=== PATIENT | male | born 1975 | race Caucasian/White ===

== ENCOUNTER → 2022-05-27 14:21 | Outpatient (BNVA) | payer OTHER, SELFPAY | PROVIDERS: Visit Provider Physician Assistant | DX: Z13.89 Encounter for screening for other disorder (principal) ==

== ENCOUNTER → 2022-06-03 08:07 | Outpatient (BNVA) | payer OTHER, SELFPAY | PROVIDERS: Visit Provider Surgery | DX: E66.9 Obesity, unspecified (principal) ==

== ENCOUNTER → 2022-06-10 08:17 | Outpatient (REF) | payer OTHER, SELFPAY ==
--- NOTE | ~2022-06-10 | XR_ITS ---
EXAMINATION: XR CHEST CLINICAL INFORMATION: Obesity. COMPARISON: None TECHNIQUE: 2 views of the chest were obtained. FINDINGS: No significant abnormality is noted involving the heart, lungs, mediastinum, bony thorax or soft tissues. XR/XR chest 2V IMPRESSION: No acute cardiopulmonary process.
--- NOTE | 2022-06-10 08:25 | ECG_ITS ---
Test Reason : E66.9 Obesity Blood Pressure : / mmHG Vent. Rate : 082 BPM Atrial Rate : 082 BPM P-R Int : 168 ms QRS Dur : 082 ms QT Int : 406 ms P-R-T Axes : 050 016 012 degrees QTc Int : 474 ms Normal sinus rhythm Normal ECG No previous ECGs available Referred By: Ed Hauser Electronically Signed By:FLORI VANN
[2022-06-10 08:40] LABS: MANUAL DIFF FLAG NO
[2022-06-10 09:17] LABS: Estimated Average Glucose 128 mg/dL; Hemoglobin A1c % 6.1 %
[2022-06-10 09:19] LABS: Basophils Percent Auto 0.3 % (0-2); Eosinophils Absolute Auto 0.2 X10*3/uL (0.0-0.4); Eosinophils Percent Auto 2.9 % (0-4); Hematocrit 38.1 % (42.0-52.0); Hemoglobin 13.4 g/dl (14.0-18.0); Imm Gran Abs Auto 0.03 X10*3/uL (0.00-0.03); Imm Gran Pct Auto 0.4 % (0.0-0.4); Lymphocytes Absolute Auto 1.6 X10*3/uL (1.2-4.9); Lymphocytes Percent Auto 21.5 % (20-40); Mean Corpuscular HGB Conc 35.2 g/dl (31.0-36.0); Mean Corpuscular Hemoglobin 30.1 pg (27.0-33.0); Mean Corpuscular Volume 85.6 fL (80.0-98.0); Mean Platelet Volume 9.6 fL (9.4-12.4); Monocytes Absolute Auto 0.4 X10*3/uL (0.1-1.2); Monocytes Percent Auto 4.9 % (2-11); Neutrophils Absolute Auto 5.3 x10*3/uL (2.0-8.3); Platelet Count 305 X10*3/uL (160-400); Red Blood Count 4.45 X10*6/uL (4.60-5.80); Red Cell Distribution Width 12.7 % (11.0-16.0); White Blood Count 7.6 X10*3/uL (4.8-10.8)
[2022-06-10 09:37] LABS: Alanine Aminotransferase 24 U/L (0-40); Albumin Level 4.4 g/dL (3.5-5.0); Alkaline Phosphatase 79 U/L (39-117); Anion Gap 12 (12-20); Aspartate Amino Transferase 23 U/L (5-37); Bilirubin Total 3.1 mg/dL (0.0-1.0); Blood Urea Nitrogen 18 mg/dL (9-16); C Reactive Protein 0.27 mg/dL (< or = 0.50); Calcium 9.4 mg/dL (8.4-10.2); Carbon Dioxide 30 mmol/L (22-29); Chloride 102 mmol/L (96-108); Cholesterol 73 mg/dL; Estimated Glomerular Filt Rate > 60; Glucose Random 143 mg/dL (60-115); HDL Cholesterol 32 mg/dL; Iron 131 mcg/dL (45-160); LDL Cholesterol Calculated 25 mg/dl; Percent Iron Saturation 39 % (15-50); Potassium 3.6 mmol/L (3.3-5.1); Sodium 140 mmol/L (135-145); Total Iron Binding Capacity 334 mcg/dL (228-428); Triglycerides 80 mg/dL; Unsaturated Iron Binding 203 ug/dL
[2022-06-10 09:49] LABS: Ferritin 103 ng/mL (20-250); Insulin 27 uU/mL (2-29); TSH reflex Free T4 0.98 uIU/mL (0.32-4.0); Vitamin D 25-OH Total 46.6 ng/mL (>30)
[2022-06-10 10:04] LABS: Folate 19.2 ng/mL (> or = 4.0); Vitamin B12 683 pg/mL (200-900)
[2022-06-11 14:13] LABS: Calcium (PTHI) 9.4 mg/dL (8.6-10.3); PTHI 34 pg/mL (16-77)
[2022-06-14 10:19] LABS: Vitamin A 58 mcg/dL (38-98); Zinc 92 mcg/dL (60-130)
[2022-06-15 08:13] LABS: Vitamin B1 21 nmol/L (8-30)
== END ==
LOC: HO.CARD 08:17
PROVIDERS: Visit Provider Surgery
DX: I11.0 Hypertensive heart disease with heart failure (principal); I50.9 Heart failure, unspecified; E66.9 Obesity, unspecified; Z68.38 Body mass index [BMI] 38.0-38.9, adult; E11.9 Type 2 diabetes mellitus without complications; E78.5 Hyperlipidemia, unspecified; G47.30 Sleep apnea, unspecified; J45.909 Unspecified asthma, uncomplicated; Z79.4 Long term (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 of insulin
CPT/HCPCS: 36415; 71046; 80053; 80061; 82306; 82607; 82728; 82746; 83036; 83525; 83540; 83970; 84425; 84443; 84590; 84630; 85025; 86140; 93005

== ENCOUNTER → 2022-06-23 07:56 | Outpatient (BNVA) | payer OTHER, SELFPAY | PROVIDERS: PCP Internal Medicine; Visit Provider Physician Assistant Surgical | DX: Z13.89 Encounter for screening for other disorder (principal) ==

== ENCOUNTER 2022-06-23 08:00 | Outpatient (REF) | payer OTHER, SELFPAY ==
[2022-06-28 14:07] LABS: H Pylori Breath Test Negative (Negative)
== END 2022-06-23 08:01 | disposition home or self-care (01) ==
LOC: HO.LNP 08:00
PROVIDERS: Visit Provider Surgery
DX: E11.9 Type 2 diabetes mellitus without complications (principal); E66.9 Obesity, unspecified; Z68.38 Body mass index [BMI] 38.0-38.9, adult; G47.30 Sleep apnea, unspecified; I10 Essential (primary) hypertension; E78.5 Hyperlipidemia, unspecified; I50.9 Heart failure, unspecified; J45.909 Unspecified asthma, uncomplicated; Z79.4 Long term (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 of insulin; Z99.89 Dependence on other enabling machines and devices
CPT/HCPCS: 83013

== ENCOUNTER → 2022-06-24 08:19 | Outpatient (BNVA) | payer OTHER, SELFPAY | PROVIDERS: Visit Provider Surgery | DX: E66.9 Obesity, unspecified (principal) ==

== ENCOUNTER → 2022-06-30 08:44 | Outpatient (BNVA) | payer OTHER, SELFPAY | PROVIDERS: Visit Provider Dietitian, Registered | DX: E66.9 Obesity, unspecified (principal); Z68.36 Body mass index [BMI] 36.0-36.9, adult; E11.9 Type 2 diabetes mellitus without complications; Z79.4 Long term (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 of insulin | CPT/HCPCS: 97802 ==

== ENCOUNTER → 2022-07-02 13:11 | Outpatient (BNVA) | payer OTHER, SELFPAY | PROVIDERS: Visit Provider Counselor Mental Health | DX: F43.20 Adjustment disorder, unspecified (principal); E66.9 Obesity, unspecified | CPT/HCPCS: 90791 ==

== ENCOUNTER 2022-07-06 08:25 | Outpatient (REF) | payer OTHER, SELFPAY ==
--- NOTE | ~2022-07-06 | FL_ITS ---
EXAMINATION: XR FLUOROSCOPY UPPER GI WITH AIR CLINICAL INFORMATION: Obesity. Preop COMPARISON: None TECHNIQUE: Routine upper GI air-contrast study was performed in upright and lying position. FINDINGS: Following oral administration of thick barium and effervescent granules there is normal propagation of bolus from the oral cavity through the pharynx, esophagus into stomach without any evidence of obstruction, narrowing or stricture. On placing patient supine and prone, there is mild gastroesophageal reflux without hiatal hernia. The course, caliber and peristalsis of the stomach, duodenal bulb and the sweep is normal. The mucosal pattern of the stomach and the duodenum is normal. FLUOROSCOPY TIME: 1.4 minutes DOSE AREA PRODUCT: 49.791 uGy-m2 (microgray-meter squared) FL/FL upper GI w air IMPRESSION: Unremarkable upper GI double contrast examination.
== END 2022-07-06 08:26 | disposition home or self-care (01) ==
LOC: HO.XRAY 08:25
PROVIDERS: Visit Provider Surgery
DX: Z01.818 Encounter for other preprocedural examination (principal); E66.9 Obesity, unspecified; Z68.38 Body mass index [BMI] 38.0-38.9, adult; E11.9 Type 2 diabetes mellitus without complications; Z79.4 Long term (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 of insulin
CPT/HCPCS: 74246

== ENCOUNTER 2022-07-17 09:07 | Outpatient (REF) | payer OTHER, SELFPAY ==
--- NOTE | ~2022-07-17 | US_ITS ---
EXAMINATION: US COMPLETE ABDOMEN WITH LIVER ELASTOGRAPHY CLINICAL INFORMATION: Obesity. COMPARISON: None. TECHNIQUE: Real-time imaging of the abdominal viscera. Noninvasive ultrasound liver fibrosis assessment is performed using Shoshana ElastPQ point quantification shear wave elastography (2D-SWE) with a C5-2 MHz transducer. Multiple elastography samples are obtained. FINDINGS: PANCREAS: Limited. The visualized pancreatic head and body are normal in appearance. The remainder of the pancreas is obscured from visualization by the overlying bowel gas. ABDOMINAL AORTA: The proximal, middle, and distal aortic segments are normal in caliber. INFERIOR VENA CAVA: Visualized portions are normal. LIVER: The liver demonstrates normal size, contour and echogenicity. No focal lesion or intrahepatic biliary duct dilatation. The right lobe measures 18.5 cm in length. The left lobe measures 9.1 cm in length. Portal flow is towards the liver (hepatopetal). Shear wave liver elastography median stiffness is 1.17 m/s (reference: normal median stiffness is 1.3 m/s or less). IQR/median stiffness to assess sampling precision is 0.03 (reference: good quality data set is IQR/median stiffness of 0.15 or less). GALLBLADDER: Normal. The gallbladder is physiologically distended without evidence of stones, sludge, polyps, wall thickening or pericholecystic fluid. COMMON BILE DUCT: Normal in caliber measuring 0.2 cm in diameter. RIGHT KIDNEY: Normal. No hydronephrosis. No renal calculi or focal parenchymal lesions. The kidney measures 11.7 cm in maximum dimension. LEFT KIDNEY: There is pelviectasis, without matt hydronephrosis. No renal calculi or focal parenchymal lesions. The kidney measures 12.5 cm in maximum dimension. SPLEEN: No focal finding. The spleen measures 15.2 cm in maximum dimension. FREE FLUID: None. US/US abdomen comp w elastography IMPRESSION: 1. There is hepatosplenomegaly. 2. There is generalized increase in hepatic echotexture, consistent with fatty infiltration or hepatocellular disease. Please correlate clinically. No focal hepatic mass or intrahepatic biliary dilatation is seen. 3. Liver elastography: Measurements are consistent with a high probability of normal liver stiffness. 4. Technically limited ultrasound examination of the pancreatic tail. REFERENCE: Society of Radiologists in Ultrasound Liver Stiffness Thresholds (2020): LIVER STIFFNESS THRESHOLDS: *Liver Stiffness equal or less than 1.3 m/s: High probability of being normal. *Liver Stiffness less than 1.7 m/s: In the absence of other known clinical signs, rules out compensated advanced chronic liver disease. *Liver Stiffness 1.7-2.1 m/s: Suggestive of compensated advanced chronic liver disease but need further test for confirmation. *Liver Stiffness over 2.1 m/s: Rules in compensated advanced chronic liver disease. *Liver Stiffness over 2.4 m/s: Suggestive of clinically significant portal hypertension. QUALITY OF DATA SET: *IQR/Median value equal or less than 0.15 implies a quality data set. *IQR/Median value over 0.15 implies a poor quality data set. SIGNIFICANT CHANGE FROM PRIOR EXAM: Significant change if liver stiffness measurement is 10% or greater from prior exam. OTHER CONSIDERATIONS: The stage of liver fibrosis may be overestimated in the setting of acute hepatitis, liver inflammation, elevated liver function tests, hepatic vascular congestion, obstructive cholestasis, non-fasting state, and infiltrative diseases such as amyloidosis and lymphoma. In some patients with NAFLD, the liver stiffness thresholds for compensated advanced chronic liver disease may be lower. In causes other than viral hepatitis and NAFLD, liver stiffness thresholds are not well established.
== END 2022-07-17 09:08 | disposition home or self-care (01) ==
LOC: HO.US 09:07
PROVIDERS: Visit Provider Surgery
DX: Z01.818 Encounter for other preprocedural examination (principal); E66.9 Obesity, unspecified; E11.9 Type 2 diabetes mellitus without complications; G47.30 Sleep apnea, unspecified; E78.5 Hyperlipidemia, unspecified; I11.0 Hypertensive heart disease with heart failure; I50.9 Heart failure, unspecified; J45.909 Unspecified asthma, uncomplicated; K21.9 Gastro-esophageal reflux disease without esophagitis; Z68.38 Body mass index [BMI] 38.0-38.9, adult; Z79.4 Long term (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 of insulin
CPT/HCPCS: 76705; 76981

== ENCOUNTER → 2022-07-22 09:32 | Outpatient (BNVA) | payer OTHER, SELFPAY | PROVIDERS: PCP Internal Medicine; Visit Provider Surgery | DX: Z13.89 Encounter for screening for other disorder (principal) ==

== ENCOUNTER → 2022-08-24 08:03 | Outpatient (BNVA) | payer OTHER, SELFPAY | PROVIDERS: PCP Internal Medicine; Visit Provider Surgery | DX: E66.9 Obesity, unspecified (principal); Z68.35 Body mass index [BMI] 35.0-35.9, adult; K21.9 Gastro-esophageal reflux disease without esophagitis; R11.0 Nausea; Z01.818 Encounter for other preprocedural examination ==

== ENCOUNTER → 2022-09-11 12:45 | Outpatient (BNVA) | payer OTHER, SELFPAY | PROVIDERS: PCP Internal Medicine; Visit Provider Surgery | DX: Z13.89 Encounter for screening for other disorder (principal) ==

== ENCOUNTER 2022-09-17 06:16 | Inpatient (IN) | payer OTHER, SELFPAY ==
[2022-09-07 09:51] LABS: MANUAL DIFF FLAG NO
[2022-09-07 10:33] LABS: Basophils Percent Auto 0.1 % (0-2); Eosinophils Absolute Auto 0.1 X10*3/uL (0.0-0.4); Eosinophils Percent Auto 1.3 % (0-4); Hematocrit 40.6 % (42.0-52.0); Hemoglobin 14.4 g/dl (14.0-18.0); Imm Gran Abs Auto 0.04 X10*3/uL (0.00-0.03); Imm Gran Pct Auto 0.4 % (0.0-0.4); Lymphocytes Absolute Auto 1.5 X10*3/uL (1.2-4.9); Lymphocytes Percent Auto 15.7 % (20-40); Mean Corpuscular HGB Conc 35.5 g/dl (31.0-36.0); Mean Corpuscular Hemoglobin 30.6 pg (27.0-33.0); Mean Corpuscular Volume 86.4 fL (80.0-98.0); Mean Platelet Volume 9.6 fL (9.4-12.4); Monocytes Absolute Auto 0.6 X10*3/uL (0.1-1.2); Monocytes Percent Auto 5.9 % (2-11); Neutrophils Absolute Auto 7.5 x10*3/uL (2.0-8.3); Neutrophils Percent Auto 76.6 % (45-73); Platelet Count 296 X10*3/uL (160-400); Red Cell Distribution Width 12.5 % (11.0-16.0); White Blood Count 9.8 X10*3/uL (4.8-10.8)
[2022-09-07 10:37] LABS: INTERNATIONAL NORM RATIO 1.1 (0.9-1.1)
[2022-09-07 10:40] LABS: Partial Thromboplastin Time 29.3 SEC (26.0-36.4)
[2022-09-07 10:45] LABS: Estimated Average Glucose 123 mg/dL; Hemoglobin A1c % 5.9 %
[2022-09-07 11:02] LABS: Alanine Aminotransferase 30 U/L (0-40); Albumin Level 4.5 g/dL (3.5-5.0); Alkaline Phosphatase 86 U/L (39-117); Anion Gap 14 (12-20); Aspartate Amino Transferase 26 U/L (5-37); Blood Urea Nitrogen 17 mg/dL (9-16); C Reactive Protein 0.19 mg/dL (< or = 0.50); Calcium 9.4 mg/dL (8.4-10.2); Carbon Dioxide 29 mmol/L (22-29); Chloride 101 mmol/L (96-108); Cholesterol 96 mg/dL; Estimated Glomerular Filt Rate 58; Glucose Random 167 mg/dL (60-115); HDL Cholesterol 32 mg/dL; LDL Cholesterol Calculated 39 mg/dl; Potassium 4.7 mmol/L (3.3-5.1); Sodium 139 mmol/L (135-145); Total Protein 7.3 g/dL (6.5-8.0); Triglycerides 129 mg/dL
[2022-09-07 11:17] LABS: Insulin 38 uU/mL (2-29); TSH reflex Free T4 0.88 uIU/mL (0.32-4.0)
[2022-09-09 10:48] VITALS: BMI 35.1
--- NOTE | 2022-09-11 22:52 | MHC.SHP ---
Pre-Procedural Eval Section A Date of Service: 09/11/22 The patient is an INPATIENT: Yes The History & Physical has been completed within 30 days and I have reviewed it.: Yes Section B Chief Complaint: obesity Relevant Family History (Specify if Yes): No Relevant Social History: None Present Medications: None Medical History: No relevant PMH History of Previous Operations: No relevant previous surgery Allergies: Allergies Allergy/AdvReac Type Severity Reaction Status Date / Time diphenhydramine AdvReac Mild Anxiety Verified 09/09/22 09:05 [From Benadhoneyl] Review of Systems Sugical H&P ROS: Negative: Constitution, Cardiovascular, Respiratory, Neurological, Psychiatric, Hem-Onc, Allergic/Immunologic, Gastrointestinal, Genitourinary, Musculoskeletal, Integumentary, Endocrine and Eyes/Ears/Nose/Throat Exam Surgical H&P Exam: Normal: HEENT, Normal: Heart, Normal: Lungs, Normal: Extremities, Normal: Abdomen, Normal: Skin and Normal: Neurological Plan Diagnosis/Plan: Unchanged I have reviewed the history and physical and performed a pertinent physical examination on my patient. No changes have occurred unless specified. Time Spent With Patient Time: Total time managing care of this patient today ____ minutes.
--- NOTE | 2022-09-16 07:58 | P.CONAN_ITS ---
Documented by User: Katerina Villarreal NP 09/16/22 10:12 HPI - Anesthesia Eval Consult details Narrative: 47yo M for Gastrectomy Sleeve,poss diaphragmatic hernia,poss ventral hernia,poss open, NICMP d/t htn heart disease with EF 15-20%. Possible ICD in future On Entresto, dose increased at 06/2022 cardiac office visit CKD with baseline creat ~ 1.2 Cardiac cleared Case reviewed by Dr Mellisa PLATA Active Problems Active Problems: All Active Problems (Updated 09/09/22 @ 09:24 by Donya Garrido, DI) Obesity (Acute) BMI 38.0-38.9,adult (Acute) BMI 36.0-36.9,adult (Acute) Adjustment disorder (Acute) BMI 35.0-35.9,adult (Acute) Asthma (Acute) DJD (degenerative joint disease) (Acute) Hyperlipidemia (Acute) Congestive heart failure (Acute) Hypertension (Acute) Sleep apnea with use of continuous positive airway pressure (CPAP) (Acute) Insulin dependent type 2 diabetes mellitus (Acute) Past Medical History Medical History Asthma Congestive heart failure DJD (degenerative joint disease) Hyperlipidemia Hypertension Insulin dependent type 2 diabetes mellitus Nonischemic cardiomyopathy Sleep apnea with use of continuous positive airway pressure (CPAP) Family History Family History Mother Hypertension High cholesterol Diabetes Stroke Father Diabetes High cholesterol Hypertension Surgical History Surgical History H/O exploratory laparotomy No pertinent past surgical history Social History Social History Are you a primary career services manager to a significant other at home: No Do you presently have visiting nurse or other home services: No Alcohol intake: current Alcohol intake frequency: holidays/special occasions only Patient Tobacco Use Status: Never used Tobacco Use of substances other than those prescribed or required for medical reasons: No Have you been hit, kicked, punched, or otherwise hurt by someone within the past year? If so, by whom?: No Are you DNR?: No Advance Directives: No Advance Directives Information Provided: Yes (States His partner is his HCP - Info mailed) Recently lost weight without trying: No How much weight loss: 14-23 pounds Nutrition Risks: No Nutritional Risk Poor oral hygiene: No Meds Allergies Allergy/AdvReac Type Severity Reaction Status Date / Time diphenhydramine AdvReac Mild Anxiety Verified 09/09/22 09:05 [facility] Home Medications Medication Instructions Recorded Confirmed Last Taken Type albuterol sulfate 90 mcg/actuation 2 puff inhalation Q6H PRN Wheezing 05/27/22 09/09/22 09/17/22 History aerosol inhaler (Ventolin HFA) dulaglutide 4.5 mg/0.5 mL 4.5 mg subcut QWEEK 05/27/22 09/09/22 Unknown History subcutaneous pen injector (Trulicity) insulin glargine 100 unit/mL (3 40 unit subcut QPM 05/27/22 09/09/22 Unknown History mL) subcutaneous pen (Lantus Solostar U-100 Insulin) insulin lispro 100 unit/mL 1 sliding scale dose subcut 05/27/22 09/09/22 Unknown History subcutaneous pen (Humalog KwikPen USEASDIRECTD (U-100) Insulin) spironolactone 25 mg tablet 25 mg PO DAILY 05/27/22 06/03/22 Unknown History atorvastatin 40 mg tablet 40 mg PO DAILY 09/09/22 09/09/22 Unknown History carvedilol 25 mg tablet 25 mg PO BID 09/09/22 09/09/22 09/17/22 History emtricitabine 200 mg-tenofovir 1 tab PO DAILY 09/09/22 09/17/22 Unknown History alafenamide fumarate 25 mg tablet (Descovy) hydroxyzine HCl 10 mg tablet 10 mg PO BEDTIME 09/09/22 Unknown History sacubitril 97 mg-valsartan 103 mg 1 tab PO BID 09/09/22 09/17/22 09/17/22 History tablet (Entresto) aspirin 81 mg tablet,delayed 81 mg PO DAILY 09/17/22 Unknown History release cetirizine 10 mg tablet 10 mg PO DAILY 09/17/22 Unknown History cholecalciferol (vitamin D3) 50 50 mcg PO DAILY 09/17/22 Unknown History mcg (2,000 unit) capsule epinephrine 0.3 mg/0.3 mL 0.3 mg IM ONCE PRN Allergic 09/17/22 09/17/22 Unknown History injection, auto-injector Reaction fluticasone propionate 50 inhalation 09/17/22 Unknown History mcg/actuation blister powder for inhalation (Flovent Diskus) nitroglycerin 0.4 mg sublingual mg sublingual 09/17/22 Unknown History tablet polyethylene glycol 3350 17 gram 17 g PO DAILY PRN Constipation 09/17/22 09/17/22 Unknown History oral powder packet (Miralax) tizanidine 2 mg tablet 2 mg PO QID 09/17/22 Unknown History Exam Exam Date and Time: September 16, 2022 0758 Height,Weight and Vital Signs: Height 5 ft 11 in Weight 114.305 kg Pertinent Lab Results Pertinent Lab Results: Laboratory Tests 09/07/22 09/07/22 09/07/22 09:45 09:50 09:50 WBC 9.8 RBC 4.70 Hgb 14.4 Hct 40.6 L MCV 86.4 MCH 30.6 MCHC 35.5 RDW 12.5 Plt Count 296 MPV 9.6 Immature Gran % (Auto) 0.4 Neut % (Auto) 76.6 H Lymph % (Auto) 15.7 L [place] % (Auto) 5.9 Eos % (Auto) 1.3 Baso % (Auto) 0.1 Lymph # (Auto) 1.5 [place] # (Auto) 0.6 Eos # (Auto) 0.1 Baso # (Auto) 0.0 Abs Immat Gran (auto) 0.04 H Absolute Neuts (auto) 7.5 Absolute Nucleated RBC 0.000 Nucleated RBC % (auto) 0.0 PT 13.0 INR 1.1 APTT 29.3 Sodium Potassium Chloride Carbon Dioxide Anion Gap BUN Creatinine Estim Creat Clear Calc Estimated GFR Random Glucose Estimat Average Glucose Hemoglobin A1c % Insulin Level Calcium Total Bilirubin AST ALT Alkaline Phosphatase C-Reactive Protein Total Protein Albumin Triglycerides Cholesterol LDL Cholesterol, Calc HDL Cholesterol TSH Blood Type O Positive Antibody Screen NEGATIVE 09/07/22 09/07/22 09:50 09:50 WBC RBC Hgb Hct MCV MCH MCHC RDW Plt Count MPV Immature Gran % (Auto) Neut % (Auto) Lymph % (Auto) [place] % (Auto) Eos % (Auto) Baso % (Auto) Lymph # (Auto) [place] # (Auto) Eos # (Auto) Baso # (Auto) Abs Immat Gran (auto) Absolute Neuts (auto) Absolute Nucleated RBC Nucleated RBC % (auto) PT INR APTT Sodium 139 Potassium 4.7 D Chloride 101 Carbon Dioxide 29 Anion Gap 14 BUN 17 H Creatinine 1.33 Estim Creat Clear Calc TNP Estimated GFR 58 Random Glucose 167 H Estimat Average Glucose 123 Hemoglobin A1c % 5.9 Insulin Level 38 H Calcium 9.4 Total Bilirubin 2.0 H AST 26 ALT 30 Alkaline Phosphatase 86 C-Reactive Protein 0.19 Total Protein 7.3 Albumin 4.5 Triglycerides 129 Cholesterol 96 LDL Cholesterol, Calc 39 HDL Cholesterol 32 TSH 0.88 Blood Type Antibody Screen Narrative Narrative: EKG 06/2022 Vent. Rate : 082 BPM ? ? Atrial Rate : 082 BPM ?? P-R Int : 168 ms? QRS Dur : 082 ms ? ? QT Int : 406 ms ? ? ? P-R-T Axes : 050 016 012 degrees ?? QTc Int : 474 ms ? Normal sinus rhythm Normal ECG No previous ECGs available ECHO 01/2022 -LV size is normal. LV wall thickness is mildly increased. LVEF 15-20%.Severe global hypokinesis with regional variation. The inferior wall is akinetic. Unable to assess diastolic function due to E/A fusion. -Trileaflet aortic valve. AV appears thickened. No . Trace AR -RV is dilated. RV systolic function is reduced. Trivial to small pericardial effusion is larger near right atrial free wall measuring 1.12cm. No evidence of cardiac tamponade. New effusion, but no other changes from previous MIBI 01/2022 1. Myocardial perfusion imaging is probably normal, without any reversible perfision defect after exercise stress test at fair functional capacity. There appears to be a small, mild defect within the apex segmednt that slightly improves with stress and has no focal motion abnormality; this is likely artifactual or represents normal variant thin apex. 2. LV function is abnormal with EF of 28% at rest and 31% with stress with global hypokinesis. 3. EKG portion of stress reported seperately. Assessment and Plan Assessment Anesthesia Assessment: Chart Reviewed Documented by User: Vicky Sellers MD 09/17/22 08:33 [facility] Past Medical History Medical History Asthma Congestive heart failure DJD (degenerative joint disease) Hyperlipidemia Hypertension Insulin dependent type 2 diabetes mellitus Nonischemic cardiomyopathy Sleep apnea with use of continuous positive airway pressure (CPAP) Family History Family History Mother Hypertension High cholesterol Diabetes Stroke Father Diabetes High cholesterol Hypertension Surgical History Surgical History H/O exploratory laparotomy No pertinent past surgical history History of Problems with Anesthesia: No Social History Social History Are you a primary career services manager to a significant other at home: No Do you presently have visiting nurse or other home services: No Alcohol intake: current Alcohol intake frequency: holidays/special occasions only Patient Tobacco Use Status: Never used Tobacco Use of substances other than those prescribed or required for medical reasons: No Have you been hit, kicked, punched, or otherwise hurt by someone within the past year? If so, by whom?: No Are you DNR?: No Advance Directives: No Advance Directives Information Provided: Yes (States His partner is his HCP - Info mailed) Recently lost weight without trying: No How much weight loss: 14-23 pounds Nutrition Risks: No Nutritional Risk Poor oral hygiene: No Meds Allergies Allergy/AdvReac Type Severity Reaction Status Date / Time diphenhydramine AdvReac Mild Anxiety Verified 09/09/22 09:05 [From Benadryl] Home Medications Medication Instructions Recorded Confirmed Last Taken Type albuterol sulfate 90 mcg/actuation 2 puff inhalation Q6H PRN Wheezing 05/27/22 09/09/22 09/17/22 History aerosol inhaler (Ventolin HFA) dulaglutide 4.5 mg/0.5 mL 4.5 mg subcut QWEEK 05/27/22 09/09/22 Unknown History subcutaneous pen injector (Trulicity) insulin glargine 100 unit/mL (3 40 unit subcut QPM 05/27/22 09/09/22 Unknown History mL) subcutaneous pen (Lantus Solostar U-100 Insulin) insulin lispro 100 unit/mL 1 sliding scale dose subcut 05/27/22 09/09/22 Unknown History subcutaneous pen (Humalog KwikPen USEASDIRECTD (U-100) Insulin) spironolactone 25 mg tablet 25 mg PO DAILY 05/27/22 06/03/22 Unknown History atorvastatin 40 mg tablet 40 mg PO DAILY 09/09/22 09/09/22 Unknown History carvedilol 25 mg tablet 25 mg PO BID 09/09/22 09/09/22 09/17/22 History emtricitabine 200 mg-tenofovir 1 tab PO DAILY 09/09/22 09/17/22 Unknown History alafenamide fumarate 25 mg tablet (Descovy) hydroxyzine HCl 10 mg tablet 10 mg PO BEDTIME 09/09/22 Unknown History sacubitril 97 mg-valsartan 103 mg 1 tab PO BID 09/09/22 09/17/22 09/17/22 History tablet (Entresto) aspirin 81 mg tablet,delayed 81 mg PO DAILY 09/17/22 Unknown History release cetirizine 10 mg tablet 10 mg PO DAILY 09/17/22 Unknown History cholecalciferol (vitamin D3) 50 50 mcg PO DAILY 09/17/22 Unknown History mcg (2,000 unit) capsule epinephrine 0.3 mg/0.3 mL 0.3 mg IM ONCE PRN Allergic 09/17/22 09/17/22 Unknown History injection, auto-injector Reaction fluticasone propionate 50 inhalation 09/17/22 Unknown History mcg/actuation blister powder for inhalation (Flovent Diskus) nitroglycerin 0.4 mg sublingual mg sublingual 09/17/22 Unknown History tablet polyethylene glycol 3350 17 gram 17 g PO DAILY PRN Constipation 09/17/22 09/17/22 Unknown History oral powder packet (Miralax) tizanidine 2 mg tablet 2 mg PO QID 09/17/22 Unknown History Exam Airway Mallampati Class: III (braces) TM Dist: >3cm Neck ROM: Full Loose/Missing/Broken Teeth: Yes and Upper Heart: RRR Lungs: CTA Assessment and Plan Assessment Anesthesia Assessment: Anesthesia Plan Discussed Final Anesthetic Review History of Problems with Anesthesia: No NPO: Yes ASA Class: IV Final Preanesthetic Review: Meds/Allgs Chart Reviewed, Consent Obtained/Reviewed and Anes Risks/Benef Reviewed Patient Risk: Intermediate Procedure Risk: Intermediate Anesthetic Plan Anesthetic Plan: GA Disposition: Standard PACU
[2022-09-16 11:32] LABS: COVID-19 Test Negative (Negative); IDNOW Serial# 55D5AD1C
[2022-09-17] VITALS (12 sets, daily range): BP systolic 116–156; BP diastolic 70–90; PULSE 68–96; RESP 13–18; TEMP 36.1–36.6; O2SAT 97–100
[2022-09-17 06:30] LABS: Glucose, Whole Blood 136 mg/dL (60-115)
[2022-09-17] MEDS: Lactated Ringers 1,000 ML 999 ML IV (06:37)
[2022-09-17] MEDS: Aprepitant 32 MG/4.4 ML VIAL IVPUSH (06:49)
--- NOTE | 2022-09-17 07:53 | P.BOP_ITS ---
Brief Operative Note Date of Service: 09/17/22 Pre-op diagnosis: Severe obesity with comorbidities (see below) Post-op diagnosis: same Procedure: INITIAL PATIENT BMI ON PRESENTATION AT OUR OFFICE: 38.1 kg/m2 LAST BMI BEFORE SURGERY: 34.4 kg/m2 COMORBIDITIES: Non-ischemic cardiomyopathy, Congestive heart failure NIHA 2, AHA stage C, insulin dependent diabetes, hypertension, chronic renal insufficiency, hyperlipidemia, asthma, sleep apnea on CPAP, back pain ?The patient presented to the Weight Management Program with significant obesity that was negatively impacting the patient's comorbidities as listed above.? The program is a phased program with a special focus on preoperative medical weight management to promote substantial weight loss and prepare the patients for the second phase of the program: bariatric surgery. The patient participated in an intensive weekly lifestyle ?intervention and exercise program during which the patient ?has lost between the initial office visit and the last preoperative visit 27.4lbs, or 10.02% of initial actual body weight. It was deemed appropriate for the patient to now have bariatric surgery. In light of the current Covid-19 pandemic and the well documented strong association of obesity and increased risk of worse outcomes if infected with Covid-19 (REFERENCES: https://pubmed.ncbi.nlm.nih.gov/82943541/ ,? https://pubmed.ncbi.nlm.nih.gov/45621453/ ), any delay in undergoing bariatric surgery may lead to the patient's worsening health condition and increased?risk of more severe Covid-19 disease if infected. In addition a recent?study from [facility] published in [employer] on 06/02/2021 ([email or web address]) found that, among patients with obesity, substantial weight loss achieved with surgery was associated with improved outcomes of COVID-19 infection. The findings suggest that obesity can be a modifiable risk factor for the severity of COVID-19 infection. In addition, the patient met the BMI-criteria for bariatric surgery based on the BMI on initial presentation. The patient should not be penalized for achieving such weight loss because ?it is not sustainable long-term without surgical intervention and it was achieved in preparation for bariatric surgery ?under my direction and based on my published research ([email or web address]).pdf and? https://www.soard.org/article/[email or web address](07)57930-X/pdf ) ?that a 10% preoperative weight loss improves long-term weight loss after surgery and re duces perioperative complications.? Insurance carriers such as [facility] have endorsed my recommendations ?and have included in their policies criteria to include a 10% preoperative weight loss requirement. PROCEDURE: Esophago-gastroscopy, laparoscopic lysis of adhesions, laparoscopic sleeve gastrectomy and laparoscopic gastropexy INDICATIONS: This is a 47 year-old male who was electively scheduled for laparoscopic, possibly open sleeve gastrectomy. The risks and complications of the procedure were discussed with the patient in advance, particularly the possibility of ; pulmonary embolism; staple line leak; bleeding; GERD; cardiac, pulmonary, or renal complications; as well as long-term problems such as insufficient weight loss, vitamin deficiency, strictures, or ulcers. The patient understood all the risks, and was in agreement to proceed with surgery. DESCRIPTION OF PROCEDURE: After informed consent was obtained from the patient, the patient was given preoperative antibiotics, and was transferred to the operating room. After successful induction of general anesthesia, a Meza catheter and pneumatic compression devices were placed on both lower extremities. An upper endoscopy was performed next. The oropharynx and esophagus appeared to be within normal limits. There was no diaphragmatic hernia present consistent with the findings of the preoperative upper GI. The stomach was entered. Then after all fluid and air were suctioned and the stomach was fully decompressed, the scope was withdrawn and secured in the mid esophagus. The patient was then prepped and draped in the usual sterile manner, and abdominal access was established at the right upper quadrant with the Lesley technique. A 12 mm blunt port was inserted, and the abdomen was insufflated with CO2 to a pressure of 15 mmHg. Under direct visualization, additional ports were placed, specifically two 5 mm Versi-step ports to the left upper quadrant, and a 5 mm Versi-Step port to the right upper quadrant. 1% lidocaine plain was used to infiltrate all port sites as well as all fascia defects. There were adhesions in the abdomen from previous exploratory laparotomy involving the omentum and the anterior abdominal wall. Some of these were lysed with the ultrasonic device to get adequate exposure to perform our procedure.. Following that, the patient was placed in a steep reverse Trendelenburg position. An additional 5 mm port was placed to the right flank for the Mediflex retractor that was used to retract the left lobe of the liver. The gastro-esophageal fat pad was opened with the ultrasonic device (Thunderbeat, Olympus) and the anterior esophagus and hiatus were exposed. The angle of His was opened with the ultrasonic device the fundus of the stomach from any diaphragmatic and splenic attachments. I then opened the gastrocolic ligament between the transverse colon and the greater curvature of the stomach with the ultrasonic device to enter the lesser sac and facilitate the ligation of the short gastric vessels. I started at a mid-point along the greater curvature and using the Thunderbeat, all short gastric vessels were divided all the way to the angle of His until the left rosi was completely dissected at its entirety. I then divided the gastro-colic ligament distally to a distance of about 3-4 cm proximal to the pylorus. There were extensive congenital adhesions between the pancreas and posterior gastric wall. Those were lysed completely with the ultrasonic device. Adhesiolysis took approximately 45 min to complete. The stomach was then divided transversely with two Endo YEFRI-45 purple, one YEFRI- 45 orange load and four YEFRI-60 articulating orange loads using the AEON stapler and loads. Every effort was made that the gastric sleeve had a tubular shape and an even caliber throughout. Once the sleeve resection was completed, the staple line of the gastric sleeve was reinforced with Hemoclips. The resected stomach was retrieved without difficulty from the Lesley port. A gastropexy was then performed in order to prevent postoperative GERD and partial gastric volvulus. Several interrupted 2.0 Surgidac sutures were placed between the sleeve's staple line and the previously divided greater omentum and gastro-colic ligament using the Endo-Stitch device. ?An upper endoscopy was performed. There was no narrowing at the GE junction. The scope was easily advanced all the way to the pylorus which was clearly visualized. There was no narrowing anywhere and the sleeve's caliber was even throughout. The sleeve's staple line was inspected and there was no evidence of ischemia, bleeding or dehiscence. At that point the gastroscope was withdrawn from the patient?s mouth while we were decompressing the bowel and the stomach from any remaining air. I looked into the lesser sac to see how the sleeve was situating and it was situating well. There was no bleeding from the staple line, spleen, or short gastric vessels. The Mediflex retractor was removed, and the undersurface of the liver was inspected and there was no bleeding. The patient was placed in supine position. I closed the fascial defect of the 12 mm port site with a figure of eight #1 Polysorb suture. Then 30cc of Ropivacaine plain with 10 mg of Dexamethasone were used to infiltrate the fascial closure as well as all skin incisions. A total of 6ml Zynrelef was applied in the Lesley wound. At this point, the abdomen was deflated, all ports were removed under direct vision, and no bleeding was noted from any of the port sites. The skin incisions were irrigated with saline and were closed with 4-0 absorbable monofilament sutures. Steri-Strips and OpSites were used to cover all incisions. The patient was extubated and was transferred in stable condition to the recovery room for further care. I was present and performed all valencia parts of the procedure. Mr. Soto was the service center assistant. There were no residents to assist with this case. Walker Hauser MD, PhD, FACS Surgeon: Ed Hauser MD Anesthesia: GETA, local and other (TAP block and 6ml Zynrelef) Was an Heating And Air Conditioning Mechanic used for this Procedure?: Yes Heating And Air Conditioning Mechanic: Jamshid Soto Estimated blood loss (mL): 10 IV fluids (mL): 2,000 Urine output (mL): 100 (No Meza to record output) Pathology: other (Stomach) Condition: stable Disposition: PACU
--- NOTE | 2022-09-17 07:58 | PM.PNGS ---
Subjective Subjective Date of Service: 09/18/22 Interval history: Feels well. Mild incisional pain. He is tolerating phase 1 bariatric diet Physical Exam Vital Signs: Vital Signs: Last Vital Signs Temp 97.0 F 09/17/22 06:20 Pulse 89 09/17/22 06:20 Resp 18 09/17/22 06:20 BP 127/88 09/17/22 06:20 Pulse Ox 97 09/17/22 06:20 O2 Del Method Room Air 09/17/22 06:20 BMI result Body Mass Index 35.1 GI: Inspection: Yes normal to inspection, Yes incision (clean, dry and intact) and Yes obesity Palpation (GI): Soft to palpation Extrem: Right lower extremity: normal to inspection (no calf tenderness) Left lower extremity: normal to inspection (no calf tenderness) Objective Data Active Medications Albuterol Sulfate (Albuterol Sulfate (0.083%) 2.5 Mg/3 Ml Vial.Neb) 2.5 mg INHALE ONCE PRN PRN Reason: Shortness of Breath/Wheezing Lactated Ringer's (Lr) 1,000 mls @ 50 mls/hr IVCONT .Q20H BERTHA Labs 09/07/22 09:50 09/07/22 09:50 Labs: Laboratory Results - last 24 hr 09/16/22 09/17/22 11:00 06:27 POC Glucose 136 H COVID-19 ([facility]ATHALIA) Negative COVID-19 Clin Com See Note Procedures Date of Service Date of Service: 09/18/22 Progress Note: A&P Assessment and plan (1) Obesity: Status: Acute Assessment and Plan: s/p laparoscopic sleeve gastrectomy, lysis of adhesions and gastropexy Doing well Will check am labs and if OK the patient will be discharged home (2) BMI 34.0-34.9,adult: Status: Acute (3) Congestive heart failure: Status: Inactive (4) Hyperlipidemia: Status: Acute (5) Hypertension: Status: Acute (6) Sleep apnea with use of continuous positive airway pressure (CPAP): Status: Acute (7) Insulin dependent type 2 diabetes mellitus: Status: Acute (8) Asthma: Status: Acute (9) DJD (degenerative joint disease): Status: Acute (10) Intra-abdominal adhesions: Status: Acute (11) Congenital intra-abdominal adhesions: Status: Acute Time Spent With Patient Time: Total time managing care of this patient today ____ minutes. Quality Stroke Does the patient have a stroke diagnosis?: No VTE Prior VTE?: No VTE Risk Level:: Surgical - moderate VTE Device Contraindication: N/A - Device Ordered VTE Drug Contraindication: Treatment Not Indicated
--- NOTE | 2022-09-17 10:50 | P.DS_ITS ---
DS: Providers Provider Date of Service: 09/18/22 Date of admission: 09/17/22 06:16 Primary care physician: Unknown Physician Consults: 09/17/22 10:45 Consult to Cardiology Stat Consulting Provider: [facility] Reason for consultation: non ischemic cardiomyopathy, HTN with reduced EF DS: Diagnosis Discharge Diagnosis (1) Obesity: Status: Acute (2) BMI 34.0-34.9,adult: Status: Acute (3) Congestive heart failure: Status: Inactive (4) Hyperlipidemia: Status: Acute (5) Hypertension: Status: Acute (6) Sleep apnea with use of continuous positive airway pressure (CPAP): Status: Acute (7) Insulin dependent type 2 diabetes mellitus: Status: Acute (8) Asthma: Status: Acute (9) DJD (degenerative joint disease): Status: Acute (10) Intra-abdominal adhesions: Status: Acute (11) Congenital intra-abdominal adhesions: Status: Acute DS: Summary Hospital Course Hospital Course: ADMITTING DIAGNOSIS: obesity, CHFrEF, nonischemic cardiomyopathy, HLD, IDDM, HTN , CKD III, MARVIN ? DISCHARGE DIAGNOSIS: same, s/p laparoscopic sleeve gastrectomy ? PAST SURGICAL HISTORY: ex lap ? PROCEDURE: upper endoscopy, laparoscopic sleeve gastrectomy ? DISCHARGE SUMMARY: ? History of Present Illness: ? The patient is a?47 year-old male with a BMI of?38.1 kg/m2 and associated co- morbidities as described above. The patient had extensive work-up,lost?28.4 lbs preoperatively and was electively scheduled for laparoscopic, possible open sleeve gastrectomy and gastropexy. Risks and complications of the surgery were discussed with the patient in advance, particularly the possibility of , pulmonary embolism, anastomotic leak, bleeding, bowel injury, GERD, cardiac, renal or pulmonary complications. The patient understood all the risks and was in agreement with the surgical plan. ? Hospital Course: ? The patient underwent an uneventful laparoscopic sleeve gastrectomy with gastropexy on the day of admission. Postoperatively, the patient was transferred to the surgical floor and placed on secured entrance monitor overnight and had a cardiology consult for nonischemic cardiomyopathy. He was re-started on his home HTN medications and FC was placed for close monitoring of fluids. Remained stable overnight with no cardiac symptoms. The patient received IV Acetaminophen and IV dilaudid for pain control. Patient was started on bariatric phase 1 diet POD #0. On postoperative day one, the patient was feeling well without nausea, vomiting, fevers, or tachycardia. The patient had some mild incisional pain and the abdomen was soft. ? On the morning of postoperative day one, the patient was continued on 1 ounce of water or ice every half hour. During the day, the patient did fairly well, having some incisional pain, but able to ambulate adequately and to tolerate liquids well. ? Since the patient is doing well, we decided that the patient was ready to be discharged. The patient was given instructions to follow-up with me next week and to call my office for any fever over 101, persistent abdominal pain, nausea, vomiting, GERD, symptoms of DVT such as calf tenderness, or leg swelling, or pulmonary embolism such as chest pain or shortness of breath. The patient was also instructed to drink 40-60 ounces of liquids per day using the 1-ounce cups. The patient had been given prescriptions for Tylenol for pain, Zofran prn for nausea, and pantoprazole and carafate previously. The patient was encouraged to ambulate and use the incentive spirometer. The patient was allowed to shower, but no baths, and encouraged to stay active at home. All of these instructions were given to the patient personally. All questions were answered and the patient understood all instructions, the instructions were also given to the patient in print. Time Spent with Patient Time attestation: Total time managing care of this patient today ____ minutes. Discharge coordination time: Less than 30 minutes Quality: Safe Use of Opioids Does Pt have an Active Cancer Diagnosis on the Problem List?: No Quality: Stroke Does the patient have a stroke diagnosis?: No Physical Exam Vital Signs: Vital Signs: Last Vital Signs Temp 98 F 09/17/22 10:41 Pulse 93 09/17/22 10:46 Resp 14 09/17/22 10:46 BP 123/74 09/17/22 10:46 Pulse Ox 100 09/17/22 10:46 O2 Del Method Simple Mask 09/17/22 10:46 O2 Flow Rate 8 09/17/22 10:46 BMI result Body Mass Index 35.1 DS: Data Data Completed and Pending Pending studies at discharge: Pending at discharge 09/17/22 09:40 Surgical [PTH] Routine Labs on day of discharge: Laboratory Results - last 24 hr 09/16/22 09/17/22 11:00 06:27 POC Glucose 136 H COVID-19 ([facility]ATHALIA) Negative COVID-19 Clin Com See Note Discharge Plan Discharge Anticipated Discharge Date/Time: 09/18/22 10:54 Patient Disposition: Home, Self-Care Discharge Diagnosis: s/p laparoscopic sleeve gastrectomy Referrals: Physician,Unknown J [Primary Care Provider] - 1 Week Discharge Medications: Continued atorvastatin 40 mg tablet 40 mg PO DAILY carvedilol 25 mg tablet 25 mg PO BID hydroxyzine HCl 10 mg tablet 10 mg PO BEDTIME Entresto 97-103 mg tablet 1 tab PO BID Flovent Diskus 50 mcg/actuation blister with device inhalation cetirizine 10 mg tablet 10 mg PO DAILY nitroglycerin 0.4 mg tablet, sublingual sublingual epinephrine 0.3 mg/0.3 mL auto-injector 0.3 mg IM ONCE PRN (Reason: Allergic Reaction) spironolactone 25 mg tablet 25 mg PO DAILY albuterol sulfate [Ventolin HFA] 90 mcg/actuation HFA aerosol inhaler 2 puff inhalation Q6H PRN (Reason: Wheezing) pantoprazole 40 mg tablet,delayed release (DR/EC) 40 mg PO DAILY Qty: 30 2RF sucralfate 100 mg/mL suspension 10 ml PO BID Qty: 400 2RF ondansetron HCl 4 mg tablet 4 mg PO Q12H Qty: 20 0RF Rx Instructions: Only take one every 12 hours as needed if you have nausea Held Descovy 200-25 mg tablet 1 tab PO DAILY Hold Instructions: until discussed with Dr Hauser tizanidine 2 mg tablet 2 mg PO QID Hold Instructions: until discussed with Dr Hauser aspirin 81 mg tablet,delayed release (DR/EC) 81 mg PO DAILY Hold Instructions: until discussed with Dr Hauser insulin glargine [Lantus Solostar U-100 Insulin] 100 unit/mL (3 mL) insulin pen 40 unit subcut QPM Hold Instructions: dose reduced to 10 u daily, discuss with Dr Hauser insulin lispro [Humalog KwikPen Insulin] 100 unit/mL insulin pen 1 sliding scale dose subcut USEASDIRECTD Hold Instructions: until discussed with Dr Hauser Discontinued cholecalciferol (vitamin D3) 50 mcg (2,000 unit) capsule 50 mcg PO DAILY polyethylene glycol 3350 [Miralax] 17 gram powder in packet 17 g PO DAILY PRN (Reason: Constipation) Rx Instructions: Mix each packet with 8oz of water, Crystal light, or Gatorade zero, or Propel and do 7 packets on 09/15/22 and another 7 packets on 09/16/22 Trulicity 4.5 mg/0.5 mL pen injector 4.5 mg subcut QWEEK Discharge Orders: Discharge Order (Routine); Ordered 09/18/22 Ordered By: Ed Hauser Activity on Discharge: No heavy lifting Stand Alone Forms: Patient Portal Discharge page Care Plan Goals: weight loss Health Concerns: obesity Plan of Treatment: No tub baths, sex or returning to work until discussed at first post op appointment. No exercise, alcohol, tobacco or illegal drug use. Continue to use incentive spirometer hourly while awake. Walk in home for 5- 10 minutes every 2 hours during the first week. Follow all instructions in the bariatric handbook and call with any questions.Discharge Instructions 1. Please call your doctor or come back to the emergency room should any new symptoms arise. 2. You will receive a courtesy call from [facility] 24-48 hours after discharge. 3. Activity: abstain from alcohol, practice limited stair climbing, no bending, no driving, no exercise, no illicit substances, no lifting, no sex, no tub bath, no work. 4. Diet: continue as discussed with Dr. Hauser. 5. Dressing Change/Wound Care: Your incision is covered by clear bandages and guaze underneath. If the area is tender, you may apply an ice pack for short intervals (no more than 20 minutes on, followed by at least 20 minutes off). Do not apply heat. Do not use creams, lotions, or topical antibiotics unless instructed to do so by your surgeon. These can cause infection or allergic mook ction. 6. Call your doctor if: - Your temperature exceeds 101.5 F - You experience excessive pain or swelling - You have an unexpected reaction to medication - You have excessive bleeding - You experience continued vomiting/nausea - Your incision begins to separate - Your incision shows signs of infection such as increased redness, swelling, excessive pain, heat, or drainage (light blood or clear fluid is normal) 7. General instructions: No lifting greater than 5 lbs for the next 4 weeks[address] driving within 24 hours of taking narcotic pain medications. If you do not move your bowels in the next 2 days, please take milk of magnesia over the counter. Please follow the post op diet and do not advance your diet until you are seen in the office in about 2 weeks. Please walk around your home every hour or two to prevent blood clots from forming in your legs. You do not need to wake from sleeping to walk. Please sleep in a bed or couch to prevent kinking at the hips and knees. Please take your incentive spirometer (your lung material combiner) home with you and use it for the next few days to prevent pneumonias. You may shower, no hot tubs, baths or swimming pools. Please call the office with any questions or concerns such as increasing abdominal pain, fever, chills, shortness of breath, chest pain, leg pain or swelling, or redness or drainage from your incisions. Please stay on stage 3 diet which includes sugar free clear liquids such as ice pops and jello and broth and crystal light. Avoid all carbonation. Please drink 3 protein shakes with at least 25-30 grams of protein daily or 3 of the Celebrate 4:1 shakes which can be purchased in our office. The Celebrate shakes have all of the bariatric vitamins you need if you consume these shakes. If you are drinking other protein shakes, you will need to purchase the Celebrate multivitamins and calcium that we provide in the office (they will provide all the vitamins you need). Please make sure you are consuming at least 40-60 ounces of water in addition to your 3 protein shakes daily. Do not hesitate to contact the office with any questions at . The patient's medical history has been reviewed and they are considered low risk for post op DVT and therefore DVT prophylaxis is not considered necessary. Travel after surgery was reviewed. The patient has not disclosed any travel plans during the first 30 days after surgery and they have been advised that within the first 30 days after surgery any bus, plane, train or car travel over 2 hours in duration is contraindicated due to the possibility of developing blood clots from immobility. Any travel, needs to include periods of ambulation of 10 minutes in duration every 2 hours.? The patient was instructed to discuss any plans for travel during this period with their bariatric surgeon. Assessment: stable s/p laparoscopic sleeve gastrectomy Discharge Date/Time: 09/18/22 11:00
[2022-09-17 11:18] LABS: Hematocrit 38.9 % (42.0-52.0); Hemoglobin 13.6 g/dl (14.0-18.0)
[2022-09-17 11:35] LABS: Anion Gap 13 (12-20); Blood Urea Nitrogen 13 mg/dL (9-16); Calcium 8.7 mg/dL (8.4-10.2); Carbon Dioxide 24 mmol/L (22-29); Chloride 107 mmol/L (96-108); Creatinine Clr Calc Pharmacy 93.9; Estimated Glomerular Filt Rate > 60; Glucose Random 149 mg/dL (60-115); Potassium 4.7 mmol/L (3.3-5.1); Sodium 139 mmol/L (135-145)
[2022-09-17 12:02] LABS: Glucose, Whole Blood 164 mg/dL (60-115)
[2022-09-17] MEDS: Lactated Ringers 1,000 ML 75 ML IVCONT (12:06)
[2022-09-17] MEDS: Insulin Lispro 100 UNIT/ML 3 ML VIAL SUBCUT ×2 (12:06→15:50)
[2022-09-17] MEDS: ceFAZolin Sodium/Dextrose,Iso 2 GM/50 ML PIGGYBACK IV (13:08)
[2022-09-17] MEDS: Acetaminophen 1,000 MG/100 ML PIGGYBACK 16.7 MG IV ×2 (13:48→19:18)
[2022-09-17 15:34] LABS: Glucose, Whole Blood 151 mg/dL (60-115)
--- NOTE | 2022-09-17 16:45 | P.CONCA_ITS ---
History of Present Illness History of Present Illness Date of Service: 09/17/22 Requesting physician: Jamshid Soto Consult reason: other (Heart failure with reduced ejection fraction) Chief complaint: obesity Narrative: I was consulted to see advised in cardiology consultation for management of his underlying cardiovascular condition. He is a 47-year-old male with what appears to be having nonischemic cardiomyopathy with severe LV systolic dysfunction with reported prior noncompliance, hypertension and heart failure syndrome. His r eported LV ejection fraction around 15%. He is currently on good neurohormonal modulation with spironolactone, carvedilol and Entresto. He is currently not on diuretic regimen as per the chart. He came in for bariatric surgery with gastric reduction and underwent sleeve gastrectomy and laparoscopic lysis of adhesions. He has no cardiac complaints currently. Only complains of postoperative pain at this point time. Noted to be hypertensive. He did not get his spironolactone this morning. Has received all other medications including carvedilol and Entresto this morning. Patient says he has been taking all his medications religiously. Denies orthopnea, PND, leg edema. Review of Systems Constitutional: Constitutional: Reports no additional constitutional complaints Eyes: Eyes: Reports no additional eye complaints Cardiovascular: Cardiovascular: Reports no additional cardiovascular complaints Respiratory: Respiratory: Reports no additional respiratory complaints Gastrointestinal: Gastrointestinal: Reports abdominal pain Genitourinary: Genitourinary: Reports no additional male genitourinary complaints Musculoskeletal: Musculoskeletal: Reports no additional musculoskeletal complaints Integumentary/Breasts: Skin/Breast: Reports system reviewed and no additional complaints, except as docu Neurologic: Reports system reviewed and no additional complaints, except as do cumented Psychiatric: Psychiatric: Reports no additional psychiatric complaints Endocrine: Endocrine: Reports no additional endocrine complaints Hematologic/Lymphatic: Hematologic/Lymphatic: Reports no additional hematologic/lymphatic complaints [facility] [place] Past Medical History Medical History (Updated 09/17/22 @ 16:51 by Deandre Humphrey MD) Asthma DJD (degenerative joint disease) Hyperlipidemia Hypertension Insulin dependent type 2 diabetes mellitus Nonischemic cardiomyopathy Sleep apnea with use of continuous positive airway pressure (CPAP) Family History Family History Mother Hypertension High cholesterol Diabetes Stroke Father Diabetes High cholesterol Hypertension Surgical History Surgical History H/O exploratory laparotomy No pertinent past surgical history Social History Social History Household Members: Family Housing: House Are you a primary child care supervisor to a significant other at home: No Do you presently have visiting nurse or other home services: No Alcohol intake: current Alcohol intake frequency: holidays/special occasions only Patient Tobacco Use Status: Never used Tobacco Use of substances other than those prescribed or required for medical reasons: No Currently Displaying Signs/Symptoms of Drug Intoxication Withdrawal: No Have you been hit, kicked, punched, or otherwise hurt by someone within the past year? If so, by whom?: No Do you feel safe in your current relationship?: No Is there a partner from a previous relationship who is making you feel unsafe now?: No Are you made to feel afraid or neglected: No Are you DNR?: No Advance Directives: No Advance Directives Information Provided: Yes (States His partner is his HCP - Info mailed) Do you have thoughts of harming others: None Do you have a plan to hurt others: No Plan Recently lost weight without trying: No How much weight loss: 14-23 pounds Nutrition Risks: No Nutritional Risk Poor oral hygiene: No Meds Allergies Allergy/AdvReac Type Severity Reaction Status Date / Time diphenhydramine AdvReac Mild Anxiety Verified 09/09/22 09:05 [From Benadryl] Active Medications: Current Medications Albuterol Sulfate (Albuterol Sulfate (0.083%) 2.5 Mg/3 Ml Vial.Neb) 2.5 mg INHALE ONCE PRN PRN Reason: Shortness of Breath/Wheezing Albuterol Sulfate (Albuterol Sulfate (0.083%) 2.5 Mg/3 Ml Vial.Neb) 2.5 mg INHALE ONCE PRN PRN Reason: Wheezing Albuterol Sulfate (Albuterol Sulfate 90 Mcg 8 Gm Inhaler) 2 puff INHALE Q6H PRN PRN Reason: Wheezing Carvedilol (Carvedilol 25 Mg Tablet) 25 mg PO BID BERTHA; Protocol Famotidine (Famotidine/Pf 20 Mg/2 Ml Vial) 20 mg IVPUSH BID BERTHA Fentanyl (Fentanyl Citrate/Pf 100 Mcg/2 Ml Vial) 50 mcg IVPUSH Q5M PRN; Protocol PRN Reason: Pain, Severe (Pain Scale 7-10) Fentanyl (Fentanyl Citrate/Pf 100 Mcg/2 Ml Vial) 25 mcg IVPUSH Q5M PRN; Protocol PRN Reason: Pain, Moderate (Pain Scale 4-6 Hydromorphone HCl (Hydromorphone Hcl 0.5 Mg/0.5 Ml Syringe) 0.25 mg IVPUSH Q5M PRN; Protocol PRN Reason: Pain, Severe (Pain Scale 7-10) Hydromorphone HCl (Hydromorphone Hcl 0.5 Mg/0.5 Ml Syringe) 0.25 mg IVPUSH Q4H PRN; Protocol PRN Reason: Pain, Moderate (Pain Scale 4-6 Lactated Ringer's (Lr) 1,000 mls @ 50 mls/hr IVCONT .Q20H [facility] Last Admin: 09/17/22 11:49 Dose: Not Given Promethazine HCl 12.5 mg/ (Sodium Chloride) 50.5 mls @ 202 mls/hr IV ONCE PRN PRN Reason: Nausea and Vomiting Lactated Ringer's (Lr) 1,000 mls @ 75 mls/hr IVCONT .[id number] [facility] Last Admin: 09/17/22 12:06 Dose: 75 mls/hr Acetaminophen (Ofirmev) 1,000 mg in 100 mls @ 16.7 mls/hr IV .Q6H [facility] Last Admin: 09/17/22 13:48 Dose: 16.7 mls/hr Insulin Human Lispro (Insulin Lispro 100 Unit/Ml 3 Ml Vial) 0 unit SUBCUT Q4H [facility]; Protocol Last Admin: 09/17/22 15:50 Dose: 2 unit Metoclopramide HCl (Metoclopramide Hcl 10 Mg/2 Ml Vial) 10 mg IVPUSH Q6H PRN PRN Reason: Nausea Ondansetron HCl (Ondansetron Hcl 4 Mg/2 Ml Vial) 4 mg IVPUSH ONCE PRN PRN Reason: Nausea and Vomiting Ondansetron HCl (Ondansetron Hcl 4 Mg/2 Ml Vial) 4 mg IVPUSH Q8H [facility] Last Admin: 09/17/22 12:09 Dose: Not Given Oxycodone HCl (Oxycodone Hcl Immed Release 5 Mg Tablet) 5 mg PO ONCE PRN PRN Reason: Pain, Severe (Pain Scale 7-10) Sacubitril/Valsartan (Sacubitril/Valsartan 97/103 1 Tab Tablet) 1 tab PO BID BERTHA; Protocol Sodium Chloride (0.9 % Sodium Chloride Flush 3 Ml Syringe) 3 ml IVFLUSH QSHIFT BERTHA Last Admin: 09/17/22 15:51 Dose: Not Given Spironolactone (Spironolactone 25 Mg Tablet) 25 mg PO DAILY BERTHA; Protocol Home Medications Medication Instructions Recorded Confirmed Last Taken Type albuterol sulfate 90 mcg/actuation 2 puff inhalation Q6H PRN Wheezing 05/27/22 09/09/22 09/17/22 History aerosol inhaler (Ventolin HFA) dulaglutide 4.5 mg/0.5 mL 4.5 mg subcut QWEEK 05/27/22 09/09/22 Unknown History subcutaneous pen injector (Trulicity) insulin glargine 100 unit/mL (3 40 unit subcut QPM 05/27/22 09/09/22 Unknown History mL) subcutaneous pen (Lantus Solostar U-100 Insulin) insulin lispro 100 unit/mL 1 sliding scale dose subcut 05/27/22 09/09/22 Unknown History subcutaneous pen (Humalog KwikPen USEASDIRECTD (U-100) Insulin) spironolactone 25 mg tablet 25 mg PO DAILY 05/27/22 06/03/22 Unknown History atorvastatin 40 mg tablet 40 mg PO DAILY 09/09/22 09/09/22 Unknown History carvedilol 25 mg tablet 25 mg PO BID 09/09/22 09/09/22 09/17/22 History emtricitabine 200 mg-tenofovir 1 tab PO DAILY 09/09/22 09/17/22 Unknown History alafenamide fumarate 25 mg tablet (Descovy) hydroxyzine HCl 10 mg tablet 10 mg PO BEDTIME 09/09/22 Unknown History sacubitril 97 mg-valsartan 103 mg 1 tab PO BID 09/09/22 09/17/22 09/17/22 History tablet (Entresto) aspirin 81 mg tablet,delayed 81 mg PO DAILY 09/17/22 Unknown History release cetirizine 10 mg tablet 10 mg PO DAILY 09/17/22 Unknown History cholecalciferol (vitamin D3) 50 50 mcg PO DAILY 09/17/22 Unknown History mcg (2,000 unit) capsule epinephrine 0.3 mg/0.3 mL 0.3 mg IM ONCE PRN Allergic 09/17/22 09/17/22 Unknown History injection, auto-injector Reaction fluticasone propionate 50 inhalation 09/17/22 Unknown History mcg/actuation blister powder for inhalation (Flovent Diskus) nitroglycerin 0.4 mg sublingual mg sublingual 09/17/22 Unknown History tablet polyethylene glycol 3350 17 gram 17 g PO DAILY PRN Constipation 09/17/22 09/17/22 Unknown History oral powder packet (Miralax) tizanidine 2 mg tablet 2 mg PO QID 09/17/22 Unknown History Physical Exam 2 Vital Signs: Vital Signs: Last Vital Signs Temp 97.4 F 09/17/22 15:29 Pulse 85 09/17/22 15:29 Resp 18 09/17/22 15:29 BP 156/90 H 09/17/22 15:29 Pulse Ox 99 09/17/22 15:29 O2 Del Method Room Air 09/17/22 15:29 O2 Flow Rate 2 09/17/22 11:37 BMI result Body Mass Index 35.1 Const: General: cooperative, comfortable, well developed, alert, awake and in distress mild and other (Due to pain) Nutritional Appearance: well nourished and obese Orientation/consciousness: patient oriented x3 HEENT: Head: Yes normocephalic and Yes atraumatic Neck: Neck: Yes trachea midline, Yes supple and Yes no JVD Resp: Effort & Inspection: decreased respiratory effort Auscultation: clear to auscultation bilaterally Cardio: Jugular venous distension: no JVD Palpation: normal PMI Rate: regular rate Rhythm: regular rhythm Heart sounds: S1 normal heart sound present, S2 normal heart sound present, no click, no gallops, no murmurs and no rubs GI: Inspection: Yes other (Recent surgery) Skin: General skin exam: no rashes or lesions noted Neuro: General: patient oriented x3 and no focal motor deficits Extrem: General: Yes no clubbing, cyanosis or edema Objective Labs and Meds 09/17/22 11:10 09/17/22 11:10 Lab results: Laboratory Results - last 24 hr 09/17/22 09/17/22 09/17/22 06:27 11:10 11:10 Hgb 13.6 L Hct 38.9 L Sodium 139 Potassium 4.7 Chloride 107 Carbon Dioxide 24 Anion Gap 13 BUN 13 Creatinine 1.25 Estim Creat Clear Calc 93.9 Estimated GFR > 60 POC Glucose 136 H Random Glucose 149 H Calcium 8.7 D 09/17/22 09/17/22 12:00 15:31 Hgb Hct Sodium Potassium Chloride Carbon Dioxide Anion Gap BUN Creatinine Estim Creat Clear Calc Estimated GFR POC Glucose 164 H 151 H Random Glucose Calcium Assessment and Plan (1) Heart failure with reduced ejection fraction: Status: Acute Patient with chronic heart failure with reduced ejection fraction nonischemic cardiomyopathy with severe LV systolic dysfunction. Clinically today appears to be euvolemic and well compensated. Currently receiving IV fluids, careful intake and output chart needs to be pursued. Please watch for signs of heart failure with increased workup breathing and/or hypoxemia. He is currently on good neurohormonal modulation without any diuretic regimen which tells me that his heart failure syndrome as outpatient well controlled. Continue carvedilol, spironolactone as well as Entresto therapy. Avoidance of salt loading. (2) Uncontrolled hypertension: Status: Acute Uncontrolled high blood pressure probably appears to be related to pain and probably not getting his spironolactone today. Please resume spironolactone today unless there obvious contraindications. Also better pain control needs to be pursued. Continue carvedilol and Entresto therapy. If blood pressure is not controlled despite adequate pain control and resuming all his medications, may add alternative therapy such as amlodipine if needed. Will follow with you Time Spent With Patient Time: Total time managing care of this patient today ____ minutes. Procedures Date of Service Date of Service: 09/17/22
[2022-09-17] MEDS: Spironolactone 25 MG TABLET PO (16:54)
[2022-09-17 19:29] LABS: Glucose, Whole Blood 132 mg/dL (60-115)
[2022-09-17] MEDS: carvediloL 25 MG TABLET PO (21:09)
[2022-09-17] MEDS: Famotidine/PF 20 MG/2 ML VIAL IVPUSH (21:09)
[2022-09-17] MEDS: Sacubitril/Valsartan 97/103 1 TAB TABLET PO (21:09)
[2022-09-17] MEDS: ondansetron HCL 4 MG/2 ML VIAL IVPUSH (21:10)
[2022-09-17 23:54] LABS: Glucose, Whole Blood 142 mg/dL (60-115)
[2022-09-18] MEDS: Acetaminophen 1,000 MG/100 ML PIGGYBACK 16.7 MG IV ×2 (01:18→05:29)
[2022-09-18] MEDS: Lactated Ringers 1,000 ML 75 ML IVCONT (01:23)
[2022-09-18] MEDS: ondansetron HCL 4 MG/2 ML VIAL IVPUSH (03:50)
[2022-09-18 03:51] LABS: Glucose, Whole Blood 138 mg/dL (60-115)
[2022-09-18 04:00] VITALS: BP 137/74; PULSE 90; RESP 18; TEMP 36.8; O2SAT 96
[2022-09-18 06:52] LABS: MANUAL DIFF FLAG NO
[2022-09-18 06:57] LABS: Basophils Percent Auto 0.1 % (0-2); Hemoglobin 13.8 g/dl (14.0-18.0); Imm Gran Abs Auto 0.04 X10*3/uL (0.00-0.03); Imm Gran Pct Auto 0.4 % (0.0-0.4); Lymphocytes Absolute Auto 0.8 X10*3/uL (1.2-4.9); Lymphocytes Percent Auto 7.6 % (20-40); Mean Corpuscular HGB Conc 36.3 g/dl (31.0-36.0); Mean Corpuscular Hemoglobin 30.9 pg (27.0-33.0); Mean Platelet Volume 10.1 fL (9.4-12.4); Monocytes Absolute Auto 0.3 X10*3/uL (0.1-1.2); Monocytes Percent Auto 3.3 % (2-11); Neutrophils Absolute Auto 9.3 x10*3/uL (2.0-8.3); Neutrophils Percent Auto 88.6 % (45-73); Platelet Count 263 X10*3/uL (160-400); Red Blood Count 4.47 X10*6/uL (4.60-5.80); White Blood Count 10.4 X10*3/uL (4.8-10.8)
[2022-09-18 07:03] VITALS: BP 137/76; PULSE 100; RESP 16; TEMP 36.1; O2SAT 96
[2022-09-18 07:16] LABS: Anion Gap 13 (12-20); Blood Urea Nitrogen 15 mg/dL (9-16); Calcium 8.7 mg/dL (8.4-10.2); Carbon Dioxide 23 mmol/L (22-29); Chloride 106 mmol/L (96-108); Creatinine Clr Calc Pharmacy 101.2; Estimated Glomerular Filt Rate > 60; Glucose Random 142 mg/dL (60-115); Potassium 4.3 mmol/L (3.3-5.1); Sodium 138 mmol/L (135-145)
[2022-09-18 07:23] LABS: Glucose, Whole Blood 157 mg/dL (60-115)
[2022-09-18] MEDS: Famotidine/PF 20 MG/2 ML VIAL IVPUSH (08:05)
[2022-09-18] MEDS: Insulin Lispro 100 UNIT/ML 3 ML VIAL SUBCUT (08:05)
[2022-09-18] MEDS: 0.9 % Sodium Chloride Flush 3 ML SYRINGE IVFLUSH (08:06)
[2022-09-18] MEDS: carvediloL 25 MG TABLET PO (08:06)
[2022-09-18] MEDS: Spironolactone 25 MG TABLET PO (08:06)
[2022-09-18] MEDS: Sacubitril/Valsartan 97/103 1 TAB TABLET PO (08:06)
[2022-09-18 08:21] VITALS: O2SAT 96
--- NOTE | 2022-09-18 08:45 | MHC.CM.PN ---
MALE 47 S/P Lap band procedure He lives with family. He is independent with all functional mobility. He is discharge to home today self care. Patient has arranged for transportation home from a family member.
--- NOTE | 2022-09-18 10:00 | PM.PNCARD ---
Subjective Subjective Date of Service: 09/18/22 Principal diagnosis: Cardiomyopathy Interval history: Patient says his pain is better controlled. His blood pressure is better controlled. Denies any cardiac complaints. No shortness of breath, orthopnea, PND. Review of Systems Constitutional: Reports no additional constitutional complaints Cardiovascular: Reports no additional cardiovascular complaints Respiratory: Reports no additional respiratory complaints Musculoskeletal: Reports no additional musculoskeletal complaints Reports system reviewed and no additional complaints, except as documented Physical Exam Vital Signs: Last Vital Signs Temp 97 F 09/18/22 07:03 Pulse 100 09/18/22 07:03 Resp 16 09/18/22 07:03 BP 137/76 09/18/22 07:03 Pulse Ox 96 09/18/22 08:21 O2 Del Method Room Air 09/18/22 08:21 O2 Flow Rate 2.5 09/17/22 19:11 BMI result Body Mass Index 35.1 Const General: cooperative, comfortable, well developed, alert, awake and in distress mild and other (Due to pain) Nutritional Appearance: well nourished and obese Orientation/consciousness: patient oriented x3 Neck Neck: Yes trachea midline, Yes supple and Yes no JVD Resp Effort & Inspection: decreased respiratory effort Auscultation: clear to auscultation bilaterally Cardio Jugular venous distension: no JVD Palpation: normal PMI Rate: regular rate Rhythm: regular rhythm Heart sounds: S1 normal heart sound present, S2 normal heart sound present, no click, no gallops, no murmurs and no rubs Neuro General: patient oriented x3 and no focal motor deficits Objective Labs and Meds 09/18/22 05:44 09/18/22 05:44 Lab results: Laboratory Results - last 24 hr 09/17/22 09/17/22 09/17/22 11:10 11:10 12:00 WBC RBC Hgb 13.6 L Hct 38.9 L MCV MCH MCHC RDW Plt Count MPV Immature Gran % (Auto) Neut % (Auto) Lymph % (Auto) [place] % (Auto) Eos % (Auto) Baso % (Auto) Lymph # (Auto) [place] # (Auto) Eos # (Auto) Baso # (Auto) Abs Immat Gran (auto) Absolute Neuts (auto) Absolute Nucleated RBC Nucleated RBC % (auto) Sodium 139 Potassium 4.7 Chloride 107 Carbon Dioxide 24 Anion Gap 13 BUN 13 Creatinine 1.25 Estim Creat Clear Calc 93.9 Estimated GFR > 60 POC Glucose 164 H Random Glucose 149 H Calcium 8.7 D 09/17/22 09/17/22 09/17/22 15:31 19:16 23:50 WBC RBC Hgb Hct MCV MCH MCHC RDW Plt Count MPV Immature Gran % (Auto) Neut % (Auto) Lymph % (Auto) [place] % (Auto) Eos % (Auto) Baso % (Auto) Lymph # (Auto) [place] # (Auto) Eos # (Auto) Baso # (Auto) Abs Immat Gran (auto) Absolute Neuts (auto) Absolute Nucleated RBC Nucleated RBC % (auto) Sodium Potassium Chloride Carbon Dioxide Anion Gap BUN Creatinine Estim Creat Clear Calc Estimated GFR POC Glucose 151 H 132 H 142 H Random Glucose Calcium 09/18/22 09/18/22 09/18/22 03:47 05:44 05:44 WBC 10.4 RBC 4.47 L Hgb 13.8 L Hct 38.0 L MCV 85.0 MCH 30.9 MCHC 36.3 H RDW 12.0 Plt Count 263 MPV 10.1 Immature Gran % (Auto) 0.4 Neut % (Auto) 88.6 H Lymph % (Auto) 7.6 L [place] % (Auto) 3.3 Eos % (Auto) 0.0 Baso % (Auto) 0.1 Lymph # (Auto) 0.8 L [place] # (Auto) 0.3 Eos # (Auto) 0.0 Baso # (Auto) 0.0 Abs Immat Gran (auto) 0.04 H Absolute Neuts (auto) 9.3 H Absolute Nucleated RBC 0.000 Nucleated RBC % (auto) 0.0 Sodium 138 Potassium 4.3 Chloride 106 Carbon Dioxide 23 Anion Gap 13 BUN 15 Creatinine 1.16 Estim Creat Clear Calc 101.2 Estimated GFR > 60 POC Glucose 138 H Random Glucose 142 H Calcium 8.7 09/18/22 07:03 WBC RBC Hgb Hct MCV MCH MCHC RDW Plt Count MPV Immature Gran % (Auto) Neut % (Auto) Lymph % (Auto) [place] % (Auto) Eos % (Auto) Baso % (Auto) Lymph # (Auto) [place] # (Auto) Eos # (Auto) Baso # (Auto) Abs Immat Gran (auto) Absolute Neuts (auto) Absolute Nucleated RBC Nucleated RBC % (auto) Sodium Potassium Chloride Carbon Dioxide Anion Gap BUN Creatinine Estim Creat Clear Calc Estimated GFR POC Glucose 157 H Random Glucose Calcium Progress Note: A&P Assessment and plan (1) Heart failure with reduced ejection fraction: Status: Acute Assessment and Plan: Prior history of heart failure with reduced ejection fraction with severe LV systolic dysfunction. Clinically doing well at this point in time. Continue current neurohormonal modulation with Aldactone, Entresto and carvedilol. Patient can be discharged from cardiac perspective at this point in time. His blood pressure is well controlled at this point in time. 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 Will sign of the case at this point in time Time Spent With Patient Time: Total time managing care of this patient today ____ minutes. Progress Note: Quality Stroke Does the patient have a stroke diagnosis?: No Procedures Date of Service Date of Service: 09/18/22
== END 2022-09-18 11:00 | disposition home or self-care (01) | DRG 620 ==
LOC: HO.SSSA 10:54 → HO.S3 11:10
PROVIDERS: Physician Assistant Surgical; Admitting Provider Surgery; PCP Internal Medicine; Visit Provider Surgery
PROC: 0DB64Z3 Excision of Stomach, Percutaneous Endoscopic Approach, Vertical (ICD-10-PCS; CPT 43845; principal; 2022-09-17 07:30)
DX: E66.01 Morbid (severe) obesity due to excess calories (principal); I13.0 Hypertensive heart and chronic kidney disease with heart failure and stage 1 through stage 4 chronic kidney disease, or unspecified chronic kidney disease; I42.8 Other cardiomyopathies; I50.22 Chronic systolic (congestive) heart failure; M19.90 Unspecified osteoarthritis, unspecified site; E78.5 Hyperlipidemia, unspecified; G47.33 Obstructive sleep apnea (adult) (pediatric); J45.909 Unspecified asthma, uncomplicated; K66.0 Peritoneal adhesions (postprocedural) (postinfection); N18.30 Chronic kidney disease, stage 3 unspecified; E11.22 Type 2 diabetes mellitus with diabetic chronic kidney disease; Z68.34 Body mass index [BMI] 34.0-34.9, adult; Z20.822 Contact with and (suspected) exposure to COVID-19; Z88.8 Allergy status to other drugs, medicaments and biological substances; Z79.4 Long term (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 of insulin; Z79.84 Long term (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 of oral hypoglycemic drugs; Z79.899 Other long term (current) drug therapy
CPT/HCPCS: 36415; 80048; 80053; 80061; 82947; 83036; 83525; 84443; 85014; 85018; 85025; 85610; 85730; 86140; 86850; 86900; 86901; 87635; 88307; 88342; A4649; C1758; C9088; C9145; J0131; J0690; J1100; J2250; J2370; J2405; J2795; J3010

== ENCOUNTER → 2022-09-22 10:08 | Outpatient (BNVA) | payer OTHER, SELFPAY | PROVIDERS: PCP Internal Medicine; Visit Provider Physician Assistant Surgical | DX: Z13.89 Encounter for screening for other disorder (principal) ==

== ENCOUNTER → 2022-10-06 08:36 | Outpatient (BNVA) | payer OTHER, SELFPAY | PROVIDERS: PCP Internal Medicine; Visit Provider Physician Assistant Surgical | DX: Z13.89 Encounter for screening for other disorder (principal) ==

== ENCOUNTER → 2022-10-28 10:24 | Outpatient (BNVA) | payer OTHER, SELFPAY | PROVIDERS: PCP Internal Medicine; Visit Provider Physician Assistant Surgical ==

== ENCOUNTER 2024-03-13 14:31 | Outpatient (AMB) | payer OTHER, SELFPAY ==
--- NOTE | 2024-03-13 14:37 | MHC.OFFVISWM ---
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 Allergies diphenhydramine [From Benadryl] Adverse Reaction (Mild, Verified 03/13/24 14:39) Anxiety Medication List - Last Reconciled 03/13/24 by WON Christina albuterol sulfate 90 mcg/actuation (Ventolin HFA) 2 puffs inhalation Q6H PRN atorvastatin 40 mg PO DAILY carvedilol 25 mg PO BID cetirizine 10 mg PO DAILY emtricitabine-tenofovir alafen 200-25 mg (Descovy) 1 tab PO DAILY epinephrine 0.3 mg IM ONCE PRN fluticasone propionate 50 mcg/actuation (Flovent Diskus) inhalation hydroxyzine HCl 10 mg PO BEDTIME sacubitril-valsartan 97-103 mg (Entresto) 1 tab PO BID spironolactone 25 mg PO DAILY tizanidine 2 mg PO QID HPI Comments Details: This is a 47 yo male who is s/p LSG without hiatal hernia repair on?09/17/22 by Omaira Hauser. Presents for 1 year 6 month post op visit. He was last seen in the office in October of 2022. Weight today is 205 pounds, with a BMI of 28.6.? There has been a 68.4 pound weight loss,(initial weight 273.4 pounds) since starting the program on 06/03/22 reflecting a 25% total body weight loss and a weight loss of 46.5 pounds since surgery (operative weight 251.5 pounds) reflecting a 18.4% TBWL since surgery.? No complaints of nausea, emesis, abdominal pain or reflux. Reports infrequent but normal bowel movements every 1-2 days and uses stool softeners regularly. Complains of very mild heartburn in the evening only. Present meal plan includes: 1-2 eggs, moroccan yogurt, 1 c OJ fruit salad moroccan yogurt or 1 c oatmeal 3-4 forks meat, 2-3 forks veg drinking 24-32 oz water Exercise routine includes: weights stationary bike 4 days per week, 300-400 calories treadmill 3 days per week 350-380 kaycee Any post op complications: none MARVIN: resolved DM: improved HTN: improved Hyperlipidemia: improved GERD:?0-5 scale ??0 = no symptoms ??1 = symptoms noticeable but not bothersome 2 =symptoms bothersome but not daily ? 3 = symptoms bothersome and daily 4 = symptoms affect daily activities 5 = symptoms are incapacitating, unable to do daily activities ? How bad is the heartburn: 0 ? Heartburn while lying down: 0 ? Heartburn when standing up: 0 ? Heartburn after meals: 0 ? Does heartburn change your diet: 0 ? Does heartburn wake you up from sleep: 0 ? Do you have difficulty swallowin ? Do you have pain with swallowin ? If you take medicine for your reflux, does this affect your daily life: 0 Satisfaction with present condition - satisfied or not satisfied: satisfied [facility] Medical History Nonischemic cardiomyopathy BMI 35.0-35.9,adult Asthma DJD (degenerative joint disease) Hyperlipidemia Hypertension Sleep apnea with use of continuous positive airway pressure (CPAP) Insulin dependent type 2 diabetes mellitus BMI 38.0-38.9,adult Surgical History S/P laparoscopic sleeve gastrectomy H/O exploratory laparotomy Family History Mother Hypertension High cholesterol Diabetes Stroke Father Diabetes High cholesterol Hypertension Social History Household Members: Family Housing: House Are you a primary field care advocate to a significant other at home: No Do you presently have visiting nurse or other home services: No Alcohol intake: current Alcohol intake frequency: holidays/special occasions only Patient Tobacco Use Status: Never used Tobacco service: No Current occupational status: employed Physical Exam Vital Signs: Last Vital Signs Temp 97.4 F 03/13/24 14:43 Pulse 70 03/13/24 14:43 BP 136/65 03/13/24 14:43 Pulse Ox 97 03/13/24 14:43 Oxygen Delivery Method Room Air 03/13/24 14:43 BMI result Body Mass Index 28.6 Const General: cooperative and no acute distress Orientation/consciousness: patient oriented x3 Resp Effort & Inspection: normal respiratory effort Auscultation: clear to auscultation bilaterally Cardio Rate: regular rate Rhythm: regular rhythm GI Inspection: Yes normal to inspection and Yes incision (well healed) Palpation (GI): Soft to palpation and no masses Neuro General: patient oriented x3 Assessment & Plan Assessment & Plan (1) S/P laparoscopic sleeve gastrectomy: Code(s): Z98.84 - Bariatric surgery status Category: Surgical Plan: Check 18 month postop labs Change meal plan to include Two eggs Meal with 6 forks of protein and for forks of veggies Croatian yogurt Celebrate rebuild 2 scoops in 8 oz of almond milk Patient given documentation that he is a patient in our practice to bring to the [facility] to rejoin the fitness club. Return to clinic 4-6 weeks. 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 insulin, Z98.84 - Bariatric surgery status Complete Blood Count Auto Diff Today E11.9 - Type 2 diabetes mellitus without complications, E78.5 - Hyperlipidemia, unspecified, I10 - Essential (primary) hypertension, Z79.4 - terminal 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 of insulin, Z98.84 - Bariatric surgery status IRON PROFILE Today E11.9 - Type 2 diabetes mellitus without complications, E78.5 - Hyperlipidemia, unspecified, I10 - Essential (primary) hypertension, Z79.4 - terminal 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 of insulin, Z98.84 - Bariatric surgery status Zinc Today E11.9 - Type 2 diabetes mellitus without complications, E78.5 - Hyperlipidemia, unspecified, I10 - Essential (primary) hypertension, Z79.4 - terminal 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 of insulin, Z.84 - Bariatric surgery status C Reactive Protein Today E11.9 - Type 2 diabetes mellitus without complications, E78.5 - Hyperlipidemia, unspecified, I10 - Essential (primary) hypertension, Z79.4 - terminal 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 of insulin, Z98.84 - Bariatric surgery status Vitamin B1 Today E11.9 - Type 2 diabetes mellitus without complications, E78.5 - Hyperlipidemia, unspecified, I10 - Essential (primary) hypertension, Z79.4 - senior care (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 of insulin, Z.84 - Bariatric surgery status Vitamin A Today E11.9 - Type 2 diabetes mellitus without complications, E78.5 - Hyperlipidemia, unspecified, I10 - Essential (primary) hypertension, Z79.4 - senior care (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 of insulin, Z.84 - Bariatric surgery status Ferritin Today E11.9 - Type 2 diabetes mellitus without complications, E78.5 - Hyperlipidemia, unspecified, I10 - Essential (primary) hypertension, Z79.4 - terminal 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 of insulin, Z.84 - Bariatric surgery status Insulin Today E11.9 - Type 2 diabetes mellitus without complications, E78.5 - Hyperlipidemia, unspecified, I10 - Essential (primary) hypertension, Z79.4 - terminal 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 of insulin, Z98.84 - Bariatric surgery status Lipid Panel Today E11.9 - Type 2 diabetes mellitus without complications, E78.5 - Hyperlipidemia, unspecified, I10 - Essential (primary) hypertension, Z79.4 - terminal 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 of insulin, Z.84 - Bariatric surgery status Comprehensive Met. Panel Today E11.9 - Type 2 diabetes mellitus without complications, E78.5 - Hyperlipidemia, unspecified, I10 - Essential (primary) hypertension, Z79.4 - senior care (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 of insulin, Z98.84 - Bariatric surgery status Vitamin B12 and Folate Today E11.9 - Type 2 diabetes mellitus without complications, E78.5 - Hyperlipidemia, unspecified, I10 - Essential (primary) hypertension, Z79.4 - terminal 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 of insulin, Z98.84 - Bariatric surgery status TSH reflex Free T4 Today E11.9 - Type 2 diabetes mellitus without complications, E78.5 - Hyperlipidemia, unspecified, I10 - Essential (primary) hypertension, Z79.4 - senior care (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 of insulin, Z98.84 - Bariatric surgery status Vitamin D 25-OH Total Today E11.9 - Type 2 diabetes mellitus without complications, E78.5 - Hyperlipidemia, unspecified, I10 - Essential (primary) hypertension, Z79.4 - senior care (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 of insulin, Z98.84 - Bariatric surgery status
[2024-03-13 14:43] VITALS: BP 136/65; PULSE 70; TEMP 36.3; O2SAT 97; BMI 28.6
== END 2024-03-13 15:06 | disposition home or self-care (01) ==
PROVIDERS: PCP Internal Medicine; Visit Provider Physician Assistant Surgical
DX: E66.3 Overweight (principal); Z68.28 Body mass index [BMI] 28.0-28.9, adult; Z90.3 Acquired absence of stomach [part of]; Z98.84 Bariatric surgery status
CPT/HCPCS: 99214

== ENCOUNTER 2024-03-13 14:31 | Outpatient (REF) | payer OTHER, SELFPAY ==
[2024-03-13 15:22] LABS: MANUAL DIFF FLAG NO
[2024-03-13 17:06] LABS: Basophils Percent Auto 0.2 % (0-2); Eosinophils Absolute Auto 0.1 X10*3/uL (0.0-0.4); Eosinophils Percent Auto 1.4 % (0-4); Hematocrit 38.4 % (42.0-52.0); Hemoglobin 13.5 g/dl (14.0-18.0); Imm Gran Abs Auto 0.01 X10*3/uL (0.00-0.03); Imm Gran Pct Auto 0.2 % (0.0-0.4); Lymphocytes Absolute Auto 1.3 X10*3/uL (1.2-4.9); Mean Corpuscular HGB Conc 35.2 g/dl (31.0-36.0); Mean Corpuscular Hemoglobin 31.8 pg (27.0-33.0); Mean Corpuscular Volume 90.4 fL (80.0-98.0); Mean Platelet Volume 9.4 fL (9.4-12.4); Monocytes Absolute Auto 0.4 X10*3/uL (0.1-1.2); Monocytes Percent Auto 5.9 % (2-11); Neutrophils Absolute Auto 4.5 x10*3/uL (2.0-8.3); Neutrophils Percent Auto 72.3 % (45-73); Platelet Count 307 X10*3/uL (160-400); Red Blood Count 4.25 X10*6/uL (4.60-5.80); Red Cell Distribution Width 12.8 % (11.0-16.0); White Blood Count 6.3 X10*3/uL (4.8-10.8)
[2024-03-13 17:12] LABS: Estimated Average Glucose 80 mg/dL; Hemoglobin A1C 87.0611 umol/L; Hemoglobin A1c % 4.4 % (<6.0); Total Hemoglobin (HGBA1C) 3476.4025 umol/L
[2024-03-13 17:26] LABS: Alanine Aminotransferase 16 U/L (0-40); Albumin Level 4.6 g/dL (3.5-5.0); Alkaline Phosphatase 60 U/L (39-117); Anion Gap 11 (12-20); Aspartate Amino Transferase 25 U/L (5-37); Bilirubin Total 1.6 mg/dL (0.0-1.0); Blood Urea Nitrogen 20 mg/dL (9-16); C Reactive Protein < 0.10 mg/dL (< or = 0.50); Calcium 9.3 mg/dL (8.4-10.2); Carbon Dioxide 29 mmol/L (22-29); Chloride 105 mmol/L (96-108); Cholesterol 179 mg/dL (<200); Estimated Glomerular Filt Rate > 60; Glucose Random 141 mg/dL (60-115); HDL Cholesterol 54 mg/dL (>40); Iron 117 mcg/dL (45-160); LDL Cholesterol Calculated 70 mg/dL (<100); Percent Iron Saturation 39 % (15-50); Sodium 141 mmol/L (135-145); Total Iron Binding Capacity 299 mcg/dL (228-428); Total Protein 7.7 g/dL (6.5-8.0); Triglycerides 277 mg/dL (<150); Unsaturated Iron Binding 182 ug/dL
[2024-03-13 17:49] LABS: Ferritin 123 ng/mL (20-250); Insulin 38 uU/mL (2-29); TSH reflex Free T4 0.56 uIU/mL (0.32-4.0); Vitamin D 25-OH Total 53.1 ng/mL (>30)
[2024-03-13 17:54] LABS: Folate 7.7 ng/mL (> or = 4.0); Vitamin B12 563 pg/mL (200-900)
[2024-03-17 00:39] LABS: Vitamin A 78 mcg/dL (38-98)
[2024-03-17 11:53] LABS: Zinc 70 mcg/dL (60-130)
[2024-03-18 15:38] LABS: Vitamin B1 12 nmol/L (8-30)
== END 2024-03-13 14:32 | disposition home or self-care (01) ==
LOC: HO.LAB 14:31
PROVIDERS: PCP Internal Medicine; Visit Provider Physician Assistant Surgical
DX: Z98.84 Bariatric surgery status (principal); I10 Essential (primary) hypertension; E78.5 Hyperlipidemia, unspecified; E11.9 Type 2 diabetes mellitus without complications; Z79.4 Long term (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 of insulin; E66.3 Overweight
CPT/HCPCS: 36415; 80053; 80061; 82306; 82607; 82728; 82746; 83036; 83525; 83540; 84425; 84443; 84590; 84630; 85025; 86140; 99212